=== PATIENT | female | born 1930 | race Caucasian/White ===

== ENCOUNTER 2019-07-03 23:43 | Inpatient (IN) | payer MEDICARE, BC, MEDICAID ==
[~2019-07-03] VITALS: Ht 162.6 cm; Wt 66.7 kg
[2019-07-03] MEDS ORDERED: COREG6.25 MG PEG (23:55)
[2019-07-03] MEDS ORDERED: ASPIRIN81 MG PEG (23:55)
[2019-07-03] MEDS ORDERED: CARDIZEM 90 MG90 MG PEG (23:56)
[2019-07-03] MEDS ORDERED: ELDERTONIC (23:56)
[2019-07-03] MEDS ORDERED: FUROSEMIDE20 MG PEG (23:56)
[2019-07-03] MEDS ORDERED: NYSTATIN1 PWD TOPICAL (23:57)
[2019-07-03] MEDS ORDERED: JUVEN (23:57)
[2019-07-03] MEDS ORDERED: ACETAMINOPHEN325 MG PEG (23:58)
[2019-07-03] MEDS ORDERED: EFFER-K 25 MEQ25 MEQ PEG (23:58)
[2019-07-04] VITALS (7 sets, daily range): BP systolic 100–149; BP diastolic 51–92; BMI 25.3; BMI 25.2
[2019-07-04] MEDS ORDERED: UREA CREAM
[2019-07-04] MEDS ORDERED: EFFEXOR50 MG PEG (00:01)
[2019-07-04 00:04] LABS: BASOPHILS 0.1 % (0-2); EOSINOPHILS 2.1 % (0-7); HEMATOCRIT 33.4 % (36.0-48.0); HEMOGLOBIN 9.9 g/dL (12-16); IMMATURE GRANULOCYTES 0.3 % (0-5); LYMPHOCYTES 7.8 % (15-50); MCH 27.7 pg (26.0-34.0); MCHC 29.6 g/dL (31.0-37.0); MCV 93.3 fL (80.0-100.0); MEAN PLATELET VOLUME 9.8 fL (7.4-10.4); NEUTROPHILS 82.7 % (40-80); RBC 3.58 10x6/uL (4.00-5.40); RDW 17.3 % (11.5-14.5); WBC 12.7 10x3/uL (4.8-10.8)
[2019-07-04 00:09] LABS: PLATELET COUNT 321 10x3/uL (130-400)
[2019-07-04 00:18] LABS: CALC OSMOLALITY 284 mosm/kg (275-300); CALCIUM 9.1 mg/dL (8.5-10.1); CARBON DIOXIDE 36.9 mmol/L (21.0-32.0); CHLORIDE - SERUM 103 mmol/L (98-107); CREATININE - SERUM 0.4 mg/dL (0.6-1.3); GLUCOSE 117 mg/dL (74-106); POTASSIUM - SERUM 5.2 mmol/L (3.5-5.1); SODIUM 141 mmol/L (136-145); UREA NITROGEN 20 mg/dL (7-18); eGFR NON AFRICAN AMERICAN > 90 mL/min (90-120)
[2019-07-04 00:23] LABS: APTT 31.8 SECONDS (22.8-39.4); INR 1.52 (0.85-1.17); PROTIME 17.7 SECONDS (11.6-15.0)
[2019-07-04 00:38] LABS: ALBUMIN 2.2 g/dL (3.4-5.0); ALKALINE PHOSPHATASE 65 U/L (46-116); ALT (SGPT) 28 U/L (10-68); BILIRUBIN - TOTAL 0.38 mg/dL (0.2-1.3); CKMB 1.2 U/L (0.0-3.6); CREATINE KINASE 139 UL (21-215); PRO BNP 4377 pg/mL (0-450)
--- NOTE | 2019-07-04 00:46 | NUR ---
INDWELLING PLUNKETT CATHETER IN PLACE UPON ARRIVAL.
[2019-07-04 01:04] LABS: TROPONIN-I 0.067 ng/mL (0.000-0.060)
[2019-07-04 01:43] LABS: APPEARANCE CLOUDY (CLEAR); BILIRUBIN NEGATIVE (NEGATIVE); COLOR YELLOW (YELLOW); GLUCOSE NEGATIVE (NEGATIVE); KETONE NEGATIVE (NEGATIVE); NITRITE NEGATIVE (NEGATIVE); PROTEIN 1+ mg/dL (NEGATIVE); SPECIFIC GRAVITY 1.015 (1.005-1.020); UROBILINOGEN NORMAL (NORMAL)
[2019-07-04 01:45] LABS: AMORPHOUS SEDIMENT >1+ /lpf (NONE SEEN); BACTERIA FEW /hpf (NEGATIVE); EPITHELIAL CELLS 0-5 /hpf (0-5); MUCUS <1+ /lpf (NONE SEEN)
[2019-07-04 10:25] LABS: BASOPHILS 0.2 % (0-2); EOSINOPHILS 0.6 % (0-7); HEMATOCRIT 29.3 % (36.0-48.0); HEMOGLOBIN 8.6 g/dL (12-16); IMMATURE GRANULOCYTES 0.3 % (0-5); LYMPHOCYTES 6.9 % (15-50); MCH 27.1 pg (26.0-34.0); MCHC 29.4 g/dL (31.0-37.0); MCV 92.4 fL (80.0-100.0); MEAN PLATELET VOLUME 9.7 fL (7.4-10.4); MONOCYTES 6.6 % (2-11); NEUTROPHILS 85.4 % (40-80); PLATELET COUNT 344 10x3/uL (130-400); RBC 3.17 10x6/uL (4.00-5.40); RDW 17.7 % (11.5-14.5); WBC 11.1 10x3/uL (4.8-10.8)
--- NOTE | 2019-07-04 11:24 | NUR ---
Pt was admitted to M2 today from [facility]. 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 Wound has stringy necrotic tissue around edges and has a strong odor. It is also noted that there is a 2cm x 2cm x 0.3cm open wound on the left lateral foot. Periwound is macerated. Pt has contractures of lower extremities, she is bedbound, has f/c and is incontinent. Recommendations: -sacral wound culture -turn/reposition every 2 hours -cushion between knees -dakins wet to dry dressing for sacral wound -alginate dressing for left foot -air overlay mattress Wound care will monitor.
--- NOTE | 2019-07-04 19:35 | NUR ---
RECEIVED BEDSIDE REPORT. PATIENT IS ALERT AND ORIENTED. RESTING COMFORTABLY IN BED. RESPIRATIONS ARE EVEN AND UNLABORED. NO S/S OF DISTRESS. NO C/O PAIN. CALL LIGHT WITHIN REACH. WILL CPOC.
--- NOTE | 2019-07-04 20:00 | NUR ---
PATIENT LAYING ON LEFT SIDE. PATIENT REPOSITIONED TO RIGHT SIDE. NO S/S OF DISTRESS. NO C/O PAIN. CALL LIGHT WITHIN REACH
[2019-07-05] VITALS: BP 130/58
[2019-07-05 04:00] VITALS: BP 117/63
--- NOTE | 2019-07-05 04:32 | NUR ---
PATIENT APPEARS TO BE SLEEPING. RESPIRATIONS ARE EVEN AND UNLABORED. NO S/S OF DISTRESS. CALL LIGHT WITHIN REACH. WILL CPOC
[2019-07-05 05:33] LABS: BASOPHILS 0.1 % (0-2); EOSINOPHILS 1.6 % (0-7); HEMATOCRIT 29.4 % (36.0-48.0); HEMOGLOBIN 8.6 g/dL (12-16); IMMATURE GRANULOCYTES 0.4 % (0-5); LYMPHOCYTES 5.4 % (15-50); MCH 27.4 pg (26.0-34.0); MCHC 29.3 g/dL (31.0-37.0); MCV 93.6 fL (80.0-100.0); MEAN PLATELET VOLUME 10.2 fL (7.4-10.4); NEUTROPHILS 83.5 % (40-80); PLATELET COUNT 316 10x3/uL (130-400); RBC 3.14 10x6/uL (4.00-5.40); RDW 17.7 % (11.5-14.5); WBC 10.4 10x3/uL (4.8-10.8)
[2019-07-05 06:18] LABS: ALBUMIN 1.9 g/dL (3.4-5.0); ALKALINE PHOSPHATASE 59 U/L (46-116); ALT (SGPT) 25 U/L (10-68); BILIRUBIN - TOTAL 0.38 mg/dL (0.2-1.3); CALC OSMOLALITY 289 mosm/kg (275-300); CARBON DIOXIDE 36.3 mmol/L (21.0-32.0); CHLORIDE - SERUM 102 mmol/L (98-107); CKMB 0.7 U/L (0.0-3.6); CREATINE KINASE 90 UL (21-215); CREATININE - SERUM 0.5 mg/dL (0.6-1.3); GLUCOSE 145 mg/dL (74-106); POTASSIUM - SERUM 4.7 mmol/L (3.5-5.1); PRO BNP 2913 pg/mL (0-450); PROTEIN - SERUM 6.7 g/dL (6.4-8.2); SODIUM 141 mmol/L (136-145); THYROID STIMULATING HORMONE 2.68 uIU/mL (0.36-3.74); eGFR NON AFRICAN AMERICAN > 90 mL/min (90-120)
[2019-07-05 06:23] LABS: UREA NITROGEN 28 mg/dL (7-18)
[2019-07-05 08:01] VITALS: BP 142/48
--- NOTE | 2019-07-05 10:30 | NUR ---
SURAJ CHANGED TO COCCYX W-D WITH ASHLEE. DENISHA YARBROUGH.
[2019-07-05 11:56] VITALS: BP 115/52
[2019-07-05 15:43] VITALS: BP 113/45
[2019-07-05 20:00] VITALS: BP 87/66
--- NOTE | 2019-07-05 20:31 | NUR ---
RECEIVED UP IN BED WITH HOB ELEVATED. ALERT AND CONFUSED. ORIENTED TO NAME ONLY. O2@ 4 LITERS PER HIGH FLOW CANNULA. IV TO RIGHT FA SL. GENERALIZED EDEMA TO ALL EXTREMITIES. REMAINS ON OVERLAY. DSG TO COCCYX. BLISTER TO FOOT AND HEEL. NO S/S OF DISTRESS OBSERVED. OSMOLITE AT 55CC/HR PER PEG. TELEMETRY IN PLACE.
[2019-07-06] VITALS: BP 140/70
[2019-07-06 04:00] VITALS: BP 178/75
[2019-07-06 04:52] LABS: BASOPHILS 0.1 % (0-2); EOSINOPHILS 1.4 % (0-7); HEMATOCRIT 30.5 % (36.0-48.0); IMMATURE GRANULOCYTES 0.3 % (0-5); LYMPHOCYTES 7.2 % (15-50); MCH 27.8 pg (26.0-34.0); MCHC 29.5 g/dL (31.0-37.0); MCV 94.1 fL (80.0-100.0); MEAN PLATELET VOLUME 10.4 fL (7.4-10.4); MONOCYTES 8.4 % (2-11); NEUTROPHILS 82.6 % (40-80); PLATELET COUNT 307 10x3/uL (130-400); RBC 3.24 10x6/uL (4.00-5.40); RDW 17.9 % (11.5-14.5); WBC 9.8 10x3/uL (4.8-10.8)
[2019-07-06 05:20] LABS: CALC OSMOLALITY 288 mosm/kg (275-300); CALCIUM 8.7 mg/dL (8.5-10.1); CARBON DIOXIDE 36.5 mmol/L (21.0-32.0); CHLORIDE - SERUM 101 mmol/L (98-107); CREATININE - SERUM 0.5 mg/dL (0.6-1.3); GLUCOSE 152 mg/dL (74-106); POTASSIUM - SERUM 5.2 mmol/L (3.5-5.1); SODIUM 139 mmol/L (136-145); UREA NITROGEN 34 mg/dL (7-18); eGFR NON AFRICAN AMERICAN > 90 mL/min (90-120)
[2019-07-06 07:36] VITALS: BP 124/70
--- NOTE | 2019-07-06 10:39 | NUR ---
DRSG CHANGED TO COCCYX W-D WITH ASHLEE. CULTURE OBTAINED AND SENT TO LAB.
[2019-07-06 11:31] VITALS: BP 116/51
[2019-07-06 15:05] VITALS: BP 132/69
--- NOTE | 2019-07-06 19:37 | NUR ---
RECEIVED UP IN BED WITH HOB ELEVATED. ALERT AND CONFUSES. BABBLES WHEN SHE SPEAKS. O2@ 4 LITERS PER HF N/C. RECEIVING UPDRAFT AT THIS TIME. DSG TO COCCYX AND TO LEFT FOOT X2. TELEMETRY IN PLACE. OSMOLITE AT 55CC/HR PER PEG. REMAINS NPO. UNABLE TO MOVE EXTREMITIES. TURNED AND REPOSITION. NO OBVIOUS S/S OF DISTRESS OBSERVED.
[2019-07-06 20:00] VITALS: BP 138/63
[2019-07-07 00:28] VITALS: BP 129/60
[2019-07-07 04:30] VITALS: BP 136/51
[2019-07-07 05:26] LABS: BASOPHILS 0.1 % (0-2); EOSINOPHILS 1.7 % (0-7); HEMATOCRIT 28.9 % (36.0-48.0); HEMOGLOBIN 8.5 g/dL (12-16); IMMATURE GRANULOCYTES 0.3 % (0-5); LYMPHOCYTES 6.3 % (15-50); MCH 27.3 pg (26.0-34.0); MCHC 29.4 g/dL (31.0-37.0); MCV 92.9 fL (80.0-100.0); MEAN PLATELET VOLUME 10.4 fL (7.4-10.4); NEUTROPHILS 83.6 % (40-80); PLATELET COUNT 305 10x3/uL (130-400); RBC 3.11 10x6/uL (4.00-5.40); RDW 17.7 % (11.5-14.5)
[2019-07-07 05:50] LABS: CALC OSMOLALITY 284 mosm/kg (275-300); CALCIUM 8.8 mg/dL (8.5-10.1); CARBON DIOXIDE 36.6 mmol/L (21.0-32.0); CHLORIDE - SERUM 100 mmol/L (98-107); GLUCOSE 143 mg/dL (74-106); POTASSIUM - SERUM 4.8 mmol/L (3.5-5.1); SODIUM 137 mmol/L (136-145); UREA NITROGEN 37 mg/dL (7-18); eGFR NON AFRICAN AMERICAN 83 mL/min (90-120)
[2019-07-07 05:51] LABS: CREATININE - SERUM 0.7 mg/dL (0.6-1.3)
--- NOTE | 2019-07-07 07:21 | NUR ---
ALERT BUT CONFUSED. TELEMERTY SHOWS CAF 87. WOUND TO COCCYX WITH DRSG DRY AND INTACT. LEFT FOOT WITH DRSG DRY AND INTACT. PEG TUBE WITH OSMOLITE AT 55. 02 AT 4 L/M HF PER NC. PLUNKETT CATH PATENT TO GRAVITY BAG. RIGHT FA SL. PT IS ON A FIRST STEP MATTRESS. WILL MONITOR. SR UP WITH CALL LIGHT IN REACH.
[2019-07-07 10:27] VITALS: BP 123/65
--- NOTE | 2019-07-07 12:10 | NUR ---
REPOSITIONED FOR COMFORT. NO NEEDS NOTED. GOOD ALIGNMENT. WILL MONITOR
[2019-07-07 13:10] VITALS: BP 114/51
--- NOTE | 2019-07-07 14:00 | NUR ---
I have reviewed this patient and I concur with the Shift Assessment completed by the Licensed Practical Nurse today this shift.
--- NOTE | 2019-07-07 15:08 | NUR ---
Nutrition Follow-up: Nurse reports pt tolerating TF at current rate; no BMs this shift. Diet: Osmolite 1.5 @ 55 mL/hr Wili BID No new wt No BMs recorded Labs noted: Glu 143 Meds noted: Lasix -Continue current TF as tolerated. -Rec may consider GI motility agent if no BMs. -RD following.
[2019-07-07 17:00] VITALS: BP 134/67
--- NOTE | 2019-07-07 19:20 | NUR ---
RECIEVED UP IN BED WITH HOB ELEVATED.O2 @ 4 LITERS SPER N/C. ALERT AND CONFUSED. OSMOLITE INFUSING AT 55CC/HR WITH H2O FLUSH OF 40CC/HR. DRESSING TO COCCYX AND LEFT FOOT CDI. REMAINS ON 1ST STEP OVERLAY MATTRESS. TELEMETRY IN PLACE. HAS A LARGE UMBILICAL HERNIA. NO S/S OF DISTRESS OBSERVED.
[2019-07-07 20:00] VITALS: BP 130/70
[2019-07-08] VITALS: BP 144/63
[2019-07-08 04:00] VITALS: BP 119/59
[2019-07-08 05:52] LABS: BASOPHILS 0.2 % (0-2); EOSINOPHILS 1.1 % (0-7); HEMATOCRIT 29.8 % (36.0-48.0); HEMOGLOBIN 8.6 g/dL (12-16); IMMATURE GRANULOCYTES 0.4 % (0-5); LYMPHOCYTES 4.3 % (15-50); MCH 27.3 pg (26.0-34.0); MCHC 28.9 g/dL (31.0-37.0); MCV 94.6 fL (80.0-100.0); MEAN PLATELET VOLUME 10.7 fL (7.4-10.4); MONOCYTES 11.5 % (2-11); NEUTROPHILS 82.5 % (40-80); PLATELET COUNT 306 10x3/uL (130-400); RBC 3.15 10x6/uL (4.00-5.40); RDW 17.7 % (11.5-14.5); WBC 11.3 10x3/uL (4.8-10.8)
[2019-07-08 06:08] LABS: CALC OSMOLALITY 284 mosm/kg (275-300); CALCIUM 8.5 mg/dL (8.5-10.1); CARBON DIOXIDE 37.7 mmol/L (21.0-32.0); CHLORIDE - SERUM 101 mmol/L (98-107); CREATININE - SERUM 0.7 mg/dL (0.6-1.3); GLUCOSE 144 mg/dL (74-106); POTASSIUM - SERUM 4.5 mmol/L (3.5-5.1); SODIUM 137 mmol/L (136-145); UREA NITROGEN 35 mg/dL (7-18); eGFR NON AFRICAN AMERICAN 83 mL/min (90-120)
--- NOTE | 2019-07-08 07:32 | NUR ---
ALERT BUT CONFUSED. TELEMERTY SHOWS CAF 94. O2 AT 4 L/M PER NC HIGH FLOW. PLUNKETT CATH TO BEDSIDE DRAINAGE. RIGHT FA IV SL. DRSG TO COCCYX AND LEFT FOOT.PT IS A DNR.
[2019-07-08 11:47] VITALS: BP 118/33
[2019-07-08 12:00] VITALS: BP 92/71
--- NOTE | 2019-07-08 16:00 | NUR ---
I have reviewed this patient and I concur with the Shift Assessment completed by the Licensed Practical Nurse today this shift.
--- NOTE | 2019-07-08 17:53 | NUR ---
LYING QUIETLY. REPOSITIONED FOR COMFORT. TELEMERTY SHOWS CAF. SR UP WITH CALL LIGHT IN REACH
[2019-07-08 18:32] VITALS: BP 125/43
--- NOTE | 2019-07-08 19:14 | NUR ---
RECEIVED BEDSIDE REPORT. PATIENT IS RESTING COMFORTABLY IN BED. RESPIRATIONS ARE EVEN AND UNLABORED. NO S/S OF DISTRESS. NO C/O PAIN. CALL LIGHT WITHIN REACH. WILL CPOC.
[2019-07-08 20:00] VITALS: BP 110/51
[2019-07-09 00:27] VITALS: BP 110/52
--- NOTE | 2019-07-09 03:50 | NUR ---
PATIENT RESTING COMFORTABLY IN BED. RESPIRATIONS ARE EVEN AND UNLABORED. NO S/S OF DISTRESS. NO C/O PAIN. CALL LIGHT WITHIN REACH. WILL CPOC.
[2019-07-09 04:30] VITALS: BP 136/65
[2019-07-09 05:33] LABS: BASOPHILS 0.2 % (0-2); EOSINOPHILS 2.2 % (0-7); HEMATOCRIT 28.5 % (36.0-48.0); HEMOGLOBIN 8.2 g/dL (12-16); IMMATURE GRANULOCYTES 0.3 % (0-5); LYMPHOCYTES 6.2 % (15-50); MCH 27.3 pg (26.0-34.0); MCHC 28.8 g/dL (31.0-37.0); MEAN PLATELET VOLUME 10.4 fL (7.4-10.4); MONOCYTES 9.5 % (2-11); NEUTROPHILS 81.6 % (40-80); PLATELET COUNT 289 10x3/uL (130-400); RDW 17.6 % (11.5-14.5); WBC 9.6 10x3/uL (4.8-10.8)
[2019-07-09 05:52] LABS: CALC OSMOLALITY 287 mosm/kg (275-300); CALCIUM 8.5 mg/dL (8.5-10.1); CARBON DIOXIDE 39.5 mmol/L (21.0-32.0); CHLORIDE - SERUM 102 mmol/L (98-107); CREATININE - SERUM 0.7 mg/dL (0.6-1.3); GLUCOSE 139 mg/dL (74-106); POTASSIUM - SERUM 4.8 mmol/L (3.5-5.1); SODIUM 139 mmol/L (136-145); UREA NITROGEN 36 mg/dL (7-18); eGFR NON AFRICAN AMERICAN 83 mL/min (90-120)
[2019-07-09 08:03] VITALS: Ht 162.6 cm; Wt 66.7 kg
[2019-07-09 09:36] VITALS: BP 159/80
--- NOTE | 2019-07-09 09:51 | NUR ---
IV RESTARTED TO RIGHT WRIST WITH 22 GAUGE CATH X 1 STICK AND FLUSHED WITH NS. LINE IS PATENT.
[2019-07-09 11:51] VITALS: BP 111/39
--- NOTE | 2019-07-09 12:14 | NUR ---
Nutrition Follow-up: Nurse reports pt tolerating TF at goal rate. Diet: Osmolite 1.5 @ 55 mL/hr Wili BID No new wt Last BM: 07/08 per chart Labs noted: Glu 139 Meds noted: Pepcid, Lasix -Continue TF/Wili as tolerated. -RD following.
--- NOTE | 2019-07-09 12:22 | NUR ---
TELEMETRY CAF. DRSG CHANGED TO COCCYX PER ORDERS. KATINA MARTELL. WILL CONT. PLAN OF CARE.
--- NOTE | 2019-07-09 14:26 | MORECARE ---
CASE MANAGEMENT DISCHARGE SUMMARY PATIENT: WILLIAN CASTELLANOS UNIT: [id number] ADM DATE: 07/04/19 AGE: 88 : [birth year] SEX: F ROOM/BED: D.2117 AUTHOR: JENNY WESTON PHYSICIAN: REFERRING PHYSICIAN: CHRISTIANO STARK MD DATE OF SERVICE: 07/09/19 Discharge Plan Patient Name: WILLIAN CASTELLANOS [facility] [facility] 1930 Planned Disposition: Nursing Facility JOSE Cert Anticipated Discharge Date: Discharge Date: Expected LOS: Initial Reviewer: [email or web address] Initial Review Date: 07/09/2019 Generated: 07/09/19 3:26 pm Coverage Notice Reviewer: [id number] Justina Morales Notice Issued Date-Time: 07/09/2019 14:10 Notice Type: IM Discharge Notice Notice Delivered To: Family Member Relationship to Patient: Son Boiler Coverer Name: JEANETTE CASTELLANOS Delivery Method: HAND - Hand Delivered Patience Days: Prior Verbal Notification: Recipient Understood Notice: Yes Recipient Signature: Yes Med Rec Note Co-signed by Attending: Coverage Notice Comment: Reviewer: [id number] Morales Notice Issued Date-Time: 07/09/2019 14:10 Notice Type: Patient Choice Letter Notice Delivered To: Family Member Relationship to Patient: Son Boiler Coverer Name: JEANETTE CASTELLANOS Delivery Method: HAND - Hand Delivered Patience Days: Prior Verbal Notification: Recipient Understood Notice: Yes Recipient Signature: Yes Med Rec Note Co-signed by Attending: Coverage Notice Comment: JOHN SIMMS Patient Name: WILLIAN CASTELLANOS Page [phone] at 1426 All edits/amendments must be made on the electronic document DICTATION DATE: 07/09/19 142 PRICING ANALYST: ANGI 07/09/19 1426 RPT#: [id number] OR DATE: STATUS: ADM IN [facility] [address] [place] [address] END OF REPORT
--- NOTE | 2019-07-09 14:57 | MORECARE ---
CASE MANAGEMENT DISCHARGE SUMMARY PATIENT: WILLIAN CASTELLANOS UNIT: [id number] ADM DATE: 07/04/19 AGE: 88 : [birth year] SEX: F ROOM/BED: D.4645 AUTHOR: JENNY WESTON PHYSICIAN: REFERRING PHYSICIAN: CHRISTIANO STARK MD DATE OF SERVICE: 07/09/19 Discharge Plan Patient Name: WILLIAN CASTELLANOS Facility: [facility]:[place] : 1930 Planned Disposition: Nursing Facility JOSE Cert Anticipated Discharge Date: Discharge Date: Expected LOS: Initial Reviewer: [email or web address] Initial Review Date: 07/09/2019 Generated: 07/09/19 3:57 pm DCPIA - Discharge Planning Initial Assessment Updated by [email or web address]: Oumar Morales on 07/09/19 2:50 pm * Is the patient Alert and Oriented? No * How many steps to enter\exit or inside your home? NONE * PCP DR. STARK * Pharmacy [facility] [place] * Preadmission Environment [facility] * Facility Name [facility] * ADLs Total Dependent * Equipment Other * Other Equipment ALL MEDICAL EQUIPMENT PROVIDED BY FACILITY * List name and contact numbers for known caregivers / representatives who currently or will assist patient after discharge: MICH [place], * Verbal permission to speak to the caregivers and representatives has been obtained from the patient. N/A * Community resources currently utilized None * Please name any agencies selected above. NONE * Additional services required to return to the preadmission environment? Yes * Can the patient safely return to the preadmission environment? Yes * Has this patient been hospitalized within the prior 30 days at any hospital? No Coverage Notice Reviewer: [id number] Justina Morales Notice Issued Date-Time: 07/09/2019 14:10 Notice Type: IM Discharge Notice Notice Delivered To: Family Member Relationship to Patient: Son All Around Gear Machine Operator Name: JEANETTE CASTELLANOS Delivery Method: HAND - Hand Delivered Patience Days: Prior Verbal Notification: Recipient Understood Notice: Yes Recipient Signature: Yes Med Rec Note Co-signed by Attending: Coverage Notice Comment: Reviewer: [id number] Morales Notice Issued Date-Time: 07/09/2019 14:10 Notice Type: Patient Choice Letter Notice Delivered To: Family Member Relationship to Patient: Son All Around Gear Machine Operator Name: JEANETTE CASTELLANOS Delivery Method: HAND - Hand Delivered Patience Days: Prior Verbal Notification: Recipient Understood Notice: Yes Recipient Signature: Yes Med Rec Note Co-signed by Attending: Coverage Notice Comment: JOHN Lockwood DP export: 07/09/19 1:26 Patient Name: WILLIAN CASTELLANOS Page [phone] at 1457 All edits/amendments must be made on the electronic document DICTATION DATE: 07/09/191456 CUSHION MAT MAKER: ANGI 07/09/191456 RPT#: [id number] DC DATE: STATUS: ADM IN [facility] [address] [place] [address] END OF REPORT
--- NOTE | 2019-07-09 15:05 | MORECARE ---
CASE MANAGEMENT DISCHARGE SUMMARY PATIENT: WILLIAN CASTELLANOS UNIT: [id number] ADM DATE: 07/04/19 AGE: 88 : [birth year] SEX: F ROOM/BED: D.9538 AUTHOR: JENNY WESTON PHYSICIAN: REFERRING PHYSICIAN: CHRISTIANO STARK MD DATE OF SERVICE: 07/09/19 Discharge Plan Patient Name: WILLIAN CASTELLANOS [facility] [facility] 1930 Planned Disposition: Nursing Facility JOSE Cert Anticipated Discharge Date: Discharge Date: Expected LOS: Initial Reviewer: [id number] Initial Review Date: 07/09/2019 Generated: 07/09/19 4:05 pm Comments DCP- Discharge Planning Updated by [email or web address]: Oumar Morales on 07/09/19 2:[address] Patient Name: WILLIAN CASTELLANOS Admission Status: ER Accout number: [id number] Admission Date: 07-04-2019 : 1930 Admission Diagnosis: Attending: CHRISTIANO STARK Current LOS: 5 Anticipated DC Date: Planned Disposition: Nursing Facility JOSE Cert Primary Insurance: [facility] PLANNED EXTERNAL PROVIDER: [facility], LONG TERM CARE MEDICAID BED Discharge Planning Comments: CM RECEIVED HOSPICE CONSULT ORDER. CM ATTEMPTED TO MEET WITH PT IN ROOM, PT CONFUSED, SUCKING ON FINGER. CM CALLED LISTED EMERGENCY CONTACT, EJANETTE EMANUEL, . JEANETTE INFORMED CM THAT PT IS PLACED AT [facility]. CM DISCUSSED HOSPICE ORDER AND DISCHARGE PLANNING PROCESS. CM PROVIDED NAMES OF HOSPICE PROVIDERS, DISCUSSED LOCATIONS HOSPICE CAN BE PROVIDED AND HOSPICE SERVICES. JEANETTE REPORTS HE HAS TALKED TO HE BEDSIDE NURSE REGARDING CHEST XRAYS AND HE IS PERSONAL FRIENDS WITH DR. STARK AND DR. SWAIN. JEANETTE WOULD LIKE TO SPEAK TO DR. BETANCOURT REGARDING PNEUMONIA DIAGNOSIS PRIOR TO MAKING FURTHER DECISIONS REGARDING HOSPICE. CM PROVIDED CM CONTACT INFORMATION AND PHONE NUMBER TO [employer] IMPROVEMENT OFFICE FOR MEDICARE, DISCUSSED IMPORTANT MESSAGE FROM MEDICARE. CM COMPLETED CHOICE LIST FOR [facility] AND MAILED COPY OF IMPORTANT MESSAGE FROM MEDICARE TO JEANETTE CASTELLANOS AT [address] [place] [phone]. CM CALLED MARINO MACDONALD, LEFT MESSAGE ASKING FOR HIM TO CALL PT'S SON TO DISCUSS CARE AND TREATMENT TO ASSIST IN FAMILY MAKING HOSPICE DECISION. CM CALLED DR. BETANCOURT, ASKED THAT HE CALL PT'S SON REGARDING PNEUMONIA DIAGNOSIS, CARE AND TREATMENT TO ASSIST IN FAMILY MAKING HOSPICE DECISION. CM WAITING FOR MARINO RAVI AND DR. BETANCOURT TO SPEAK TO PT'S SON, JEANETTE CASTELLANOS AT [phone]. JEANETTE WILL MAKE FURTHER CARE DECISIONS AFTER SPEAKING TO THE DOCTORS. [employer] Installer: Oumar Carmen DCPIA - Discharge Planning Initial Assessment Updated by [email or web address]: Oumar Morales on 07/09/19 2:50 pm * Is the patient Alert and Oriented? No * How many steps to enter\exit or inside your home? NONE * PCP DR. STARK * Pharmacy [facility] [place] * Preadmission Environment [facility] * Facility Name [facility] * ADLs Total Dependent * Equipment Other * Other Equipment ALL MEDICAL EQUIPMENT PROVIDED BY FACILITY * List name and contact numbers for known caregivers / representatives who currently or will assist patient after discharge: JEANETTE CASTELLANOS, MICH, * Verbal permission to speak to the caregivers and representatives has been obtained from the patient. N/A * Community resources currently utilized None * Please name any agencies selected above. NONE * Additional services required to return to the preadmission environment? Yes * Can the patient safely return to the preadmission environment? Yes * Has this patient been hospitalized within the prior 30 days at any hospital? No Coverage Notice Reviewer: [id number] Morales Notice Issued Date-Time: 07/09/2019 14:10 Notice Type: IM Discharge Notice Notice Delivered To: Family Member Relationship to Patient: Son Doctor Chiropractic Name: JEANETTE CASTELLANOS Delivery Method: CERT - Certified Mail Patience Days: Prior Verbal Notification: Recipient Understood Notice: Yes Recipient Signature: Med Rec Note Co-signed by Attending: Coverage Notice Comment: DISCUSSED VIA PHONE Reviewer: [id number] Morales Notice Issued Date-Time: 07/09/2019 14:10 Notice Type: Patient Choice Letter Notice Delivered To: Family Member Relationship to Patient: Son Doctor Chiropractic Name: JEANETTE CASTELLANOS Delivery Method: HAND - Hand Delivered Patience Days: Prior Verbal Notification: Recipient Understood Notice: Yes Recipient Signature: Yes Med Rec Note Co-signed by Attending: Coverage Notice Comment: JOHN LLOYDConi Lockwood DP export: 07/09/19 1:57 Patient Name: WILLIAN CASTELLANOS Page [phone] at 1505 All edits/amendments must be made on the electronic document DICTATION DATE: 07/09/19 150 BALANCE WHEEL MOTION INSPECTOR: ANGI 07/09/19 150 RPT#: [id number] DC DATE: STATUS: ADM IN [facility] [address] [place] [address] END OF REPORT
[2019-07-09 16:10] VITALS: BP 117/69
--- NOTE | 2019-07-09 19:22 | NUR ---
RECEIVED BEDSIDE REPORT. PATIENT IS ALERT AND PLEASANTLY CONFUSED, RESTING COMFORTABLY IN BED. PATIENT IS CURRENTLY RECEIVING HER SCHEDULED BREATHING TREATMENTS. NO S/S OF DISTRESS. NO C/O PAIN. CALL LIGHT WITHIN REACH. NEEDS MET. WILL CPOC.
[2019-07-09 20:00] VITALS: BP 164/53
--- NOTE | 2019-07-09 22:02 | NUR ---
PATIENT GIVEN BATH AND LINENS CHANGED. PATIENT ALSO REPOSITIONED AT THIS TIME
[2019-07-10] VITALS: BP 145/49
--- NOTE | 2019-07-10 02:30 | NUR ---
PATIENT REPOSTIONED ONTO RIGHT SIDE.
[2019-07-10 05:49] LABS: BASOPHILS 0.3 % (0-2); EOSINOPHILS 0.5 % (0-7); HEMATOCRIT 28.9 % (36.0-48.0); HEMOGLOBIN 8.3 g/dL (12-16); IMMATURE GRANULOCYTES 0.3 % (0-5); LYMPHOCYTES 6.5 % (15-50); MCH 26.9 pg (26.0-34.0); MCHC 28.7 g/dL (31.0-37.0); MCV 93.8 fL (80.0-100.0); MEAN PLATELET VOLUME 11.1 fL (7.4-10.4); MONOCYTES 8.7 % (2-11); NEUTROPHILS 83.7 % (40-80); PLATELET COUNT 339 10x3/uL (130-400); RBC 3.08 10x6/uL (4.00-5.40); RDW 17.5 % (11.5-14.5); WBC 11.7 10x3/uL (4.8-10.8)
[2019-07-10 07:29] LABS: ANION GAP 3.5 mmol/L (8-16); CALCIUM 8.7 mg/dL (8.5-10.1); CARBON DIOXIDE 38.7 mmol/L (21.0-32.0); CREATININE - SERUM 0.8 mg/dL (0.6-1.3); MAGNESIUM - SERUM 2.6 mg/dL (1.8-2.4); PHOSPHOROUS 2.5 mg/dL (2.5-4.9); POTASSIUM - SERUM 5.2 mmol/L (3.5-5.1); VANCOMYCIN - TROUGH 12.1 ug/mL (10.0-20.0)
[2019-07-10 08:19] VITALS: BP 147/66
--- NOTE | 2019-07-10 10:40 | EC ---
PATIENT:WILLIAN CASTELLANOS DATE OF SERVICE: 07/04/19 SEX: F MEDICAL RECORD: [id number] DATE OF : [birth year] LOCATION:D.M2 D.211 AGE OF PATIENT: 88 ADMISSION DATE: 07/04/19 REFERRING PHYSICIAN: INTERPRETING PHYSICIAN: YADIEL HUMPHREY MD ECHOCARDIOGRAM REPORT ECHO CHARGES 4 ECHO COMPLETE Date: 07/04/19 CLINICAL DIAGNOSIS: DYSPNEA/A-FIB WITH RVR ECHOCARDIOGRAPHIC MEASUREMENTS (adult normal given) AC root (d.<3.7cm) 3.3 cm LV Septum d (<1.2 cm> 1.4 cm Valve Excursion 0.7 cm LV Septum (systole) 2.1 cm Left Atria (s.<4.0cm> 6.0 cm LVPW d(<1.2cm) 1.3 cm RV (d.<2.3cm) 2.8 cm LVPW (sytole) 2.0 cm LV diastole(<5.6CM) 4.8 cm MV E-F(>70mm/sec) cm LV systole 2.3 cm LVOT Diameter 1.7 cm MV exc.(>10mm) cm Est.ejection fraction (50-75%) % DOPPLER: LVIT cm/sec A cm/sec E 165 cm/sec LA cm/sec RVSP 79.3 mmHg LVOT 136 cm/sec AOP1/2T 352.0m/s Asc. Ao 421 cm/sec RVOT 48.0 cm/sec RA cm/sec PA 69.0 cm/sec AV Gradient Peak 71.0 mmHg AV Mean 36.3 mmHg AV Area 0.9 cm MV Gradient Peak 15.0 mmHg MV Mean 5.6 mmHg MV Area cm COMMENTS: Paper Rewinder Operator: Corry AMADOROE Treasury Agent: 1 Dr. Humphrey TAPE# PACS Pericardial Effusion N DATE OF SERVICE: 07/04/2019 ECHOCARDIOGRAM FINDINGS: 1. Left ventricular chamber size is within normal limits. Left ventricular systolic function is normal at 60%. 2. Left atrium is enlarged at 6.0 cm. Right atrium and right ventricular chamber sizes are as well, moderate to severely dilated. 3. Valvular structures: Aortic valve demonstrates severe aortic stenosis, ECHOCARDIOGRAM REPORT [id number] WILLIAN CASTELLANOS valve area calculates to 0.9 cm-squared, but there is a gradient of 71 mm across the valve. The remaining valvular structures have normal structure and motion. 4. Doppler interrogation elsewise reveals moderate aortic insufficiency, moderate mitral regurgitation, moderate tricuspid regurgitation, no other valvular insufficiency or stenosis. Pulmonary systolic pressure is markedly elevated at 80 mmHg. 5. No evidence of pericardial effusion or left ventricular thrombus. TRANSINT:[id number] Voice Confirmation ID: [id number] DOCUMENT ID: [id number] YADIEL HUMPHREY MD at 1040 CC: [id number] DICTATION DATE: 07/04/19 1434 [place] NET: 07/04/19 1851 ADM IN [facility] [address] [place] [id number]
[2019-07-10 12:30] VITALS: BP 112/38
--- NOTE | 2019-07-10 14:10 | MORECARE ---
CASE MANAGEMENT DISCHARGE SUMMARY PATIENT: WILLIAN CASTELLANOS UNIT: [id number] ADM DATE: 07/04/19 AGE: 88 : [birth year] SEX: F ROOM/BED: D.6931 AUTHOR: JENNY WESTON PHYSICIAN: REFERRING PHYSICIAN: CHRISTIANO STARK MD DATE OF SERVICE: 07/10/19 Discharge Plan Patient Name: WILLIAN CASTELLANOS [facility] [facility] 1930 Planned Disposition: Nursing Facility JOSE Cert Anticipated Discharge Date: Discharge Date: Expected LOS: Initial Reviewer: [email or web address] Initial Review Date: 07/09/2019 Generated: 07/10/19 3:10 pm Comments DCP- Discharge Planning Updated by [email or web address]: Oumar Morales on 07/09/19 2:[address] Patient Name: WILLIAN CASTELLANOS Admission Status: ER Accout number: [id number] Admission Date: 07-04-2019 : 1930 Admission Diagnosis: Attending: CHRISTIANO STARK Current LOS: 5 Anticipated DC Date: Planned Disposition: Nursing Facility JOSE Cert Primary Insurance: [facility] PLANNED EXTERNAL PROVIDER: [facility], LONG TERM CARE MEDICAID BED Discharge Planning Comments: CM RECEIVED HOSPICE CONSULT ORDER. CM ATTEMPTED TO MEET WITH PT IN ROOM, PT CONFUSED, SUCKING ON FINGER. CM CALLED LISTED EMERGENCY CONTACT, JEANETTE EMANUEL, . JEANETTE INFORMED CM THAT PT IS PLACED AT [facility]. CM DISCUSSED HOSPICE ORDER AND DISCHARGE PLANNING PROCESS. CM PROVIDED NAMES OF HOSPICE PROVIDERS, DISCUSSED LOCATIONS HOSPICE CAN BE PROVIDED AND HOSPICE SERVICES. JEANETTE REPORTS HE HAS TALKED TO HE BEDSIDE NURSE REGARDING CHEST XRAYS AND HE IS PERSONAL FRIENDS WITH DR. STARK AND DR. SWAIN. JEANETTE WOULD LIKE TO SPEAK TO DR. BETANCOURT REGARDING PNEUMONIA DIAGNOSIS PRIOR TO MAKING FURTHER DECISIONS REGARDING HOSPICE. CM PROVIDED CM CONTACT INFORMATION AND PHONE NUMBER TO [employer] IMPROVEMENT OFFICE FOR MEDICARE, DISCUSSED IMPORTANT MESSAGE FROM MEDICARE. CM COMPLETED CHOICE LIST FOR [facility] AND MAILED COPY OF IMPORTANT MESSAGE FROM MEDICARE TO JEANETTE CASTELLANOS AT [address] [place] [phone]. CM CALLED MARINO MACDONALD, LEFT MESSAGE ASKING FOR HIM TO CALL PT'S SON TO DISCUSS CARE AND TREATMENT TO ASSIST IN FAMILY MAKING HOSPICE DECISION. CM CALLED DR. BETANCOURT, ASKED THAT HE CALL PT'S SON REGARDING PNEUMONIA DIAGNOSIS, CARE AND TREATMENT TO ASSIST IN FAMILY MAKING HOSPICE DECISION. CM WAITING FOR MARINO RAVI AND DR. BETANCOURT TO SPEAK TO PT'S SON, JEANETTE CASTELLANOS AT [phone]. JEANETTE WILL MAKE FURTHER CARE DECISIONS AFTER SPEAKING TO THE DOCTORS. Supervisor Loading: Oumar Morales DCPIA - Discharge Planning Initial Assessment Updated by [email or web address]: Oumar Morales on 07/09/19 2:50 pm * Is the patient Alert and Oriented? No * How many steps to enter\exit or inside your home? NONE * PCP DR. STARK * Pharmacy [facility] [place] * Preadmission Environment C[facility]ial [facility] * Facility Name [facility] * ADLs Total Dependent * Equipment Other * Other Equipment ALL MEDICAL EQUIPMENT PROVIDED BY FACILITY * List name and contact numbers for known caregivers / representatives who currently or will assist patient after discharge: JEANETTE CASTELLANOS, SON, * Verbal permission to speak to the caregivers and representatives has been obtained from the patient. N/A * Community resources currently utilized None * Please name any agencies selected above. NONE * Additional services required to return to the preadmission environment? Yes * Can the patient safely return to the preadmission environment? Yes * Has this patient been hospitalized within the prior 30 days at any hospital? No External Providers External Provider: [facility] *(provides inpt [facility] Next Contact Date: 07/10/2019 Service Request Date: Service Type: Resolution: Reviewer: Comments: Coverage Notice Reviewer: [email or web address] Justina Morales Notice Issued Date-Time: 07/09/2019 14:10 Notice Type: IM Discharge Notice Notice Delivered To: Family Member Relationship to Patient: Son Dsp Engineer Name: JEANETTE CASTELLANOS Delivery Method: CERT - Certified Mail Patience Days: Prior Verbal Notification: Recipient Understood Notice: Yes Recipient Signature: Med Rec Note Co-signed by Attending: Coverage Notice Comment: DISCUSSED VIA PHONE Reviewer: [id number] Morales Notice Issued Date-Time: 07/09/2019 14:10 Notice Type: Patient Choice Letter Notice Delivered To: Family Member Relationship to Patient: Son Dsp Engineer Name: JEANETTE CASTELLANOS Delivery Method: HAND - Hand Delivered Patience Days: Prior Verbal Notification: Recipient Understood Notice: Yes Recipient Signature: Yes Med Rec Note Co-signed by Attending: Coverage Notice Comment: JOHN Lockwood DP export: 07/09/19 2:05 Patient Name: WILLIAN CASTELLANOS Page [phone] at 1410 All edits/amendments must be made on the electronic document DICTATION DATE: 07/10/191409 TEMPORARY ADMINISTRATIVE ASSISTANT: ANGI 07/10/191409 RPT#: [id number] DC DATE: STATUS: ADM IN [facility] [address] [place] [address] END OF REPORT
--- NOTE | 2019-07-10 14:34 | MORECARE ---
CASE MANAGEMENT DISCHARGE SUMMARY PATIENT: WILLIAN CASTELLANOS UNIT: [id number] ADM DATE: 07/04/19 AGE: 88 : [birth year] SEX: F ROOM/BED: D.0102 AUTHOR: JENNY WESTON PHYSICIAN: REFERRING PHYSICIAN: CHRISTIANO STARK MD DATE OF SERVICE: 07/10/19 Discharge Plan Patient Name: WILLIAN CASTELLANOS Facility: [facility]:[place] : 1930 Planned Disposition: Nursing Facility [facility] Cert Anticipated Discharge Date: Discharge Date: Expected LOS: Initial Reviewer: [id number] Initial Review Date: 07/09/2019 Generated: 07/10/19 3:33 pm Comments DCP- Discharge Planning Updated by [id number]: Oumar Morales on 07/10/19 1:[address] Patient Name: WILLIAN CASTELLANOS Encounter No: [id number] : 1930 Primary Insurance: [employer] Anticipated DC Date: Planned Disposition: Nursing Facility [facility] Cert External Planned Provider: [place], LONG TERM CARE MEDICAID BED DCP follow-up note: CM RECEIVED CALL FROM JEANETTE CASTELLANOS, SON, WHO INFORMED CM THAT HE HAS TALKED TO DR. BETANCOURT AND MARINO MACDONALD. JEANETTE WOULD LIKE REFERRAL FOR HOSPICE FAXED TO [facility] BUT HAS NOT MADE A DEFINITE HOSPICE DECISION YET. JEANETTE WOULD LIKE TO DISCUSS HOSPICE CARE AND OPTIONS WITH [facility] BEFORE MAKING FURHTER DECISIONS. CHOICE COMPLETED FOR [facility]. CM CALLED [facility], ,. SPOKE TO MARGE AND PROVIDED REFERRAL FOR HOSPICE CONSULT. CM FAXED REFERRAL TO [facility] AT [phone]. CM WAITING ON HOSPICE CONSULT AND FOR PT'S SON'S DECISION REGARDING HOSPICE CARE. PT'S SON REPORTS THAT IF PT IS NOT APPROPRIATE FOR INPATIENT HOSPICE OR IF HE DECIDES AGAINST HOSPICE, HE PLANS TO RETURN PT TO [facility] CARE AT [facility]. CM TO CONTINUE TO FOLLOW AND ASSIST NEEDED. Oumar Morales CASE LAI DCP- Discharge Planning Updated by [email or web address]: Oumar Morales on 07/09/19 2:[address] Patient Name: WILLIAN CASTELLANOS Admission Status: ER Accout number: [id number] Admission Date: 07-04-2019 : 1930 Admission Diagnosis: Attending: CHRISTIANO STARK Current LOS: 5 Anticipated DC Date: Planned Disposition: Nursing Facility [facility] Primary Insurance: [facility] PLANNED EXTERNAL PROVIDER: [facility], [facility] MEDICAID BED Discharge Planning Comments: CM RECEIVED HOSPICE CONSULT ORDER. CM ATTEMPTED TO MEET WITH PT IN ROOM, PT CONFUSED, SUCKING ON FINGER. CM CALLED LISTED EMERGENCY CONTACT, JEANETTE CASTELLANOS, . JEANETTE INFORMED CM THAT PT IS PLACED AT [facility]. CM DISCUSSED HOSPICE ORDER AND DISCHARGE PLANNING PROCESS. CM PROVIDED NAMES OF HOSPICE PROVIDERS, DISCUSSED LOCATIONS HOSPICE CAN BE PROVIDED AND HOSPICE SERVICES. JEANETTE REPORTS HE HAS TALKED TO HE BEDSIDE NURSE REGARDING CHEST XRAYS AND HE IS PERSONAL FRIENDS WITH DR. STARK AND DR. SWAIN. JEANETTE WOULD LIKE TO SPEAK TO DR. BETANCOURT REGARDING PNEUMONIA DIAGNOSIS PRIOR TO MAKING FURTHER DECISIONS REGARDING HOSPICE. CM PROVIDED CM CONTACT INFORMATION AND PHONE NUMBER TO QUALITY IMPROVEMENT OFFICE FOR MEDICARE, DISCUSSED IMPORTANT MESSAGE FROM MEDICARE. CM COMPLETED CHOICE LIST FOR [facility] AND MAILED COPY OF IMPORTANT MESSAGE FROM MEDICARE TO JEANETTE CASTELLANOS AT [address] [place] [phone]. CM CALLED MARINO MACDONALD, LEFT MESSAGE ASKING FOR HIM TO CALL PT'S SON TO DISCUSS CARE AND TREATMENT TO ASSIST IN FAMILY MAKING HOSPICE DECISION. CM CALLED DR. BETANCOURT, ASKED THAT HE CALL PT'S SON REGARDING PNEUMONIA DIAGNOSIS, CARE AND TREATMENT TO ASSIST IN FAMILY MAKING HOSPICE DECISION. CM WAITING FOR MARINO RAVI AND DR. BETANCOURT TO SPEAK TO PT'S SON, JEANETTE CASTELLANOS AT [phone]. JEANETTE WILL MAKE FURTHER CARE DECISIONS AFTER SPEAKING TO THE DOCTORS. Branch Coordinator: Oumar Morales DCPIA - Discharge Planning Initial Assessment Updated by [id number]: Oumar Morales on 07/09/19 2:50 pm * Is the patient Alert and Oriented? No * How many steps to enter\exit or inside your home? NONE * PCP DR. STARK * Pharmacy [facility] [place] * Preadmission Environment [employer] * Facility Name [facility] * ADLs Total Dependent * Equipment Other * Other Equipment ALL MEDICAL EQUIPMENT PROVIDED BY FACILITY * List name and contact numbers for known caregivers / representatives who currently or will assist patient after discharge: JEANETTE CASTELLANOS, SON, * Verbal permission to speak to the caregivers and representatives has been obtained from the patient. N/A * Community resources currently utilized None * Please name any agencies selected above. NONE * Additional services required to return to the preadmission environment? Yes * Can the patient safely return to the preadmission environment? Yes * Has this patient been hospitalized within the prior 30 days at any hospital? No Coverage Notice Reviewer: [id number] Morales Notice Issued Date-Time: 07/09/2019 14:10 Notice Type: IM Discharge Notice Notice Delivered To: Family Member Relationship to Patient: Son Direct Sales Professional Name: JEANETTE CASTELLANOS Delivery Method: CERT - Certified Mail Patience Days: Prior Verbal Notification: Recipient Understood Notice: Yes Recipient Signature: Med Rec Note Co-signed by Attending: Coverage Notice Comment: DISCUSSED VIA PHONE Reviewer: AUBREE Morales Notice Issued Date-Time: 07/09/2019 14:10 Notice Type: Patient Choice Letter Notice Delivered To: Family Member Relationship to Patient: Son Direct Sales Professional Name: JEANETTE CASTELLANOS Delivery Method: HAND - Hand Delivered Patience Days: Prior Verbal Notification: Recipient Understood Notice: Yes Recipient Signature: Yes Med Rec Note Co-signed by Attending: Coverage Notice Comment: JOHN SIMMS Reviewer: [id number] Morales Notice Issued Date-Time: 07/10/2019 11:45 Notice Type: Patient Choice Letter Notice Delivered To: Family Member Relationship to Patient: Son Direct Sales Professional Name: JEANETTE CASTELLANOS Delivery Method: HAND - Hand Delivered Patience Days: Prior Verbal Notification: Recipient Understood Notice: Yes Recipient Signature: Yes Med Rec Note Co-signed by Attending: Coverage Notice Comment: [facility] Last DP export: 07/10/19 1:10 Patient Name: WILLIAN CASTELLANOS Page [phone] at 1434 All edits/amendments must be made on the electronic document DICTATION DATE: 07/10/191432 CAR DRIVER: ANGI 07/10/191432 RPT#: [id number] DC DATE: STATUS: ADM IN [facility] [address] [place] [address] END OF REPORT
--- NOTE | 2019-07-10 14:44 | NUR ---
DRSG CHANGED TO [facility] PER ORDERS. BM NOTED.
[2019-07-10 15:31] VITALS: BP 105/42
--- NOTE | 2019-07-10 16:29 | MORECARE ---
CASE MANAGEMENT DISCHARGE SUMMARY PATIENT: WILLIAN CASTELLANOS UNIT: [id number] ADM DATE: 07/04/19 AGE: 88 : [birth year] SEX: F ROOM/BED: D.0710 AUTHOR: JENNY WESTON PHYSICIAN: REFERRING PHYSICIAN: CHRISTIANO STARK MD DATE OF SERVICE: 07/10/19 Discharge Plan Patient Name: WILLIAN CASTELLANOS Facility: [facility]:[place] : 1930 Planned Disposition: Hospice Medical Facility Anticipated Discharge Date: 07/10/19 Discharge Date: Expected LOS: 6 Initial Reviewer: [id number] Initial Review Date: 07/10/2019 Generated: 07/10/19 5:28 pm Comments DCP- Discharge Planning Updated by [email or web address]: Oumar Morales on 07/10/19 1:[address] Patient Name: WILLIAN CASTELLANOS Encounter No: [id number] : 1930 [facility] Anticipated DC Date: Planned Disposition: Nursing Facility [facility] Cert External Planned Provider: [place], LONG TERM CARE MEDICAID BED DCP follow-up note: CM RECEIVED CALL FROM JEANETTE CASTELLANOS, SON, WHO INFORMED CM THAT HE HAS TALKED TO DR. BETANCOURT AND MARINO MACDONALD. JEANETTE WOULD LIKE REFERRAL FOR HOSPICE FAXED TO [facility] BUT HAS NOT MADE A DEFINITE HOSPICE DECISION YET. JEANETTE WOULD LIKE TO DISCUSS HOSPICE CARE AND OPTIONS WITH [facility] BEFORE MAKING FURHTER DECISIONS. CHOICE COMPLETED FOR [facility]. CM CALLED [facility], ,. SPOKE TO MARGE AND PROVIDED REFERRAL FOR HOSPICE CONSULT. CM FAXED REFERRAL TO [facility] AT [phone]. CM WAITING ON HOSPICE CONSULT AND FOR PT'S SON'S DECISION REGARDING HOSPICE CARE. PT'S SON REPORTS THAT IF PT IS NOT APPROPRIATE FOR INPATIENT HOSPICE OR IF HE DECIDES AGAINST HOSPICE, HE PLANS TO RETURN PT TO FOOD AND BEVERAGE ORDER CLERK CARE AT [facility]. CM TO CONTINUE TO FOLLOW AND ASSIST NEEDED. Oumar Morales CASE MANAGEMENT DCP- Discharge Planning Updated by [id number]: Oumar Morales on 07/09/19 2:[address] Patient Name: WILLIAN CASTELLANOS Admission Status: ER Accout number: [id number] Admission Date: 07-04-2019 : 1930 Admission Diagnosis: Attending: CHRISTIANO STARK Current LOS: 5 Anticipated DC Date: Planned Disposition: Nursing Facility [facility] Primary Insurance: [facility] PLANNED EXTERNAL PROVIDER: [place], LONG TERM CARE MEDICAID BED Discharge Planning Comments: CM RECEIVED HOSPICE CONSULT ORDER. CM ATTEMPTED TO MEET WITH PT IN ROOM, PT CONFUSED, SUCKING ON FINGER. CM CALLED LISTED EMERGENCY CONTACT, JEANETTE CASTELLANOS, . JEANETTE INFORMED CM THAT PT IS PLACED AT [facility]. CM DISCUSSED HOSPICE ORDER AND DISCHARGE PLANNING PROCESS. CM PROVIDED NAMES OF HOSPICE PROVIDERS, DISCUSSED LOCATIONS HOSPICE CAN BE PROVIDED AND HOSPICE SERVICES. JEANETTE REPORTS HE HAS TALKED TO HE BEDSIDE NURSE REGARDING CHEST XRAYS AND HE IS PERSONAL FRIENDS WITH DR. STARK AND DR. SWAIN. JEANETTE WOULD LIKE TO SPEAK TO DR. BETANCOURT REGARDING PNEUMONIA DIAGNOSIS PRIOR TO MAKING FURTHER DECISIONS REGARDING HOSPICE. CM PROVIDED CM CONTACT INFORMATION AND PHONE NUMBER TO QUALITY IMPROVEMENT OFFICE FOR MEDICARE, DISCUSSED IMPORTANT MESSAGE FROM MEDICARE. CM COMPLETED CHOICE LIST FOR [facility] AND MAILED COPY OF IMPORTANT MESSAGE FROM MEDICARE TO JEANETTE CASTELLANOS AT [address] [place] [phone]. CM CALLED MARINO MACDONALD, LEFT MESSAGE ASKING FOR HIM TO CALL PT'S SON TO DISCUSS CARE AND TREATMENT TO ASSIST IN FAMILY MAKING HOSPICE DECISION. CM CALLED DR. BETANCOURT, ASKED THAT HE CALL PT'S SON REGARDING PNEUMONIA DIAGNOSIS, CARE AND TREATMENT TO ASSIST IN FAMILY MAKING HOSPICE DECISION. CM WAITING FOR MARINO RAVI AND DR. BETANCOURT TO SPEAK TO PT'S SON, JEANETTE CASTELLANOS AT [phone]. JEANETTE WILL MAKE FURTHER CARE DECISIONS AFTER SPEAKING TO THE DOCTORS. Door Liner Helper: Oumar Morales DCPIA - Discharge Planning Initial Assessment Updated by [email or web address]: Oumar Morales on 07/09/19 2:50 pm * Is the patient Alert and Oriented? No * How many steps to enter\exit or inside your home? NONE * PCP DR. STARK * Pharmacy [facility] [place] * Preadmission Environment [employer] Consultant Assisted * Facility Name [facility] [place] [facility] * ADLs Total Dependent * Equipment Other * Other Equipment ALL MEDICAL EQUIPMENT PROVIDED BY FACILITY * List name and contact numbers for known caregivers / representatives who currently or will assist patient after discharge: MICH MONTGOMERY, * Verbal permission to speak to the caregivers and representatives has been obtained from the patient. N/A * Community resources currently utilized None * Please name any agencies selected above. NONE * Additional services required to return to the preadmission environment? Yes * Can the patient safely return to the preadmission environment? Yes * Has this patient been hospitalized within the prior 30 days at any hospital? No Coverage Notice Reviewer: AUBREE Morales Notice Issued Date-Time: 07/09/2019 14:10 Notice Type: IM Discharge Notice Notice Delivered To: Family Member Relationship to Patient: Son Track Surfacing Machine Operator Name: JEANETTE CASTELLANOS Delivery Method: CERT - Certified Mail Patience Days: Prior Verbal Notification: Recipient Understood Notice: Yes Recipient Signature: Med Rec Note Co-signed by Attending: Coverage Notice Comment: DISCUSSED VIA PHONE Reviewer: AUBREE Morales Notice Issued Date-Time: 07/09/2019 14:10 Notice Type: Patient Choice Letter Notice Delivered To: Family Member Relationship to Patient: Son Track Surfacing Machine Operator Name: JEANETTE CASTELLANOS Delivery Method: HAND - Hand Delivered Patience Days: Prior Verbal Notification: Recipient Understood Notice: Yes Recipient Signature: Yes Med Rec Note Co-signed by Attending: Coverage Notice Comment: JOHN SIMMS Reviewer: [id number] Morales Notice Issued Date-Time: 07/10/2019 11:45 Notice Type: Patient Choice Letter Notice Delivered To: Family Member Relationship to Patient: Son Track Surfacing Machine Operator Name: JEANETTE CASTELLANOS Delivery Method: HAND - Hand Delivered Patience Days: Prior Verbal Notification: Recipient Understood Notice: Yes Recipient Signature: Yes Med Rec Note Co-signed by Attending: Coverage Notice Comment: [facility] Last DP export: 07/10/19 1:34 Patient Name: WILLIAN CASTELLANOS Page 11676 at 1629 All edits/amendments must be made on the electronic document DICTATION DATE: 07/10/191627 TOY STUFFER: ANGI 07/10/191627 RPT#: [id number] DC DATE: STATUS: ADM IN [facility] [address] [place] [address] END OF REPORT
--- NOTE | 2019-07-10 16:35 | NUR ---
HOSPICE EVAL DONE WITH SON. HAS ACCEPTED AND BLU NOTIFIED. WILL DC IN AM TO HOSPICE. SHALLOW AND RAPID BREATHING NOTED AND REPORTED.
--- NOTE | 2019-07-10 16:41 | MORECARE ---
CASE MANAGEMENT DISCHARGE SUMMARY PATIENT: WILLIAN CASTELLANOS UNIT: [id number] ADM DATE: 07/04/19 AGE: 88 : [birth year] SEX: F ROOM/BED: D.0296 AUTHOR: TRIST[employer]OC PHYSICIAN: REFERRING PHYSICIAN: CHRISTIANO STARK MD DATE OF SERVICE: 07/10/19 Discharge Plan Patient Name: WILLIAN CASTELLANOS Facility: [facility]:[place] : 1930 Planned Disposition: Hospice Medical Facility Anticipated Discharge Date: 07/10/19 Discharge Date: Expected LOS: 6 Initial Reviewer: [id number] Initial Review Date: 07/10/2019 Generated: 07/10/19 5:40 pm Comments DCP- Discharge Planning Updated by [id number]: Oumar Morales on 07/10/19 3:[address] Patient Name: WILLIAN CASTELLANOS Encounter No: [id number] : 1930 Primary Insurance: [employer] Anticipated DC Date: 07-10-2019 Planned Disposition: Hospice Medical Facility External Planned Provider: [facility], [place]PATIENT [place] DCP follow-up note: CM SPOKE TO [facility] WHO INFORMED CM THAT PT HAS BEEN ACCEPTED FOR INPATIENT HOSPICE TODAY BY DR. CAMPOS OF [facility]. CM NOTIFIED PT'S SON, JEANETTE CASTELLANOS, WHO IS IN AGREEMENT WITH HOSPICE AND WOULD LIKE PT TRANSFERRED TODAY. CM NOTIFIED DRUM WORKER TORRES WHO INFORMED CM THAT HE IS NOT IN LOCATION WITH ABILITY TO ENTER DISCHARGE AND WILL DISCHARGE PT IN THE MORNING. CM NOTIFIED PT'S SON WHO IS IN AGREEMENT WITH PLAN. CM RECEIVED CALL FROM [facility] WHO INFORMED CM THAT PT IS HAVING AGONAL BREATHING AND FEELS PT NEEDS TRANSFERRED TONIGHT TO HOSPICE. DAVID SPOKE TO BEDSIDE NURSE AND ASKED HER TO ALL DRUM WORKER. BEDSIDE NURSE INFORMED CM THAT DRUM WORKER WILL DISCHARGE TOMORROW TO [facility]. DAVID NOTIFIED RUIDOSO DOWNS WITH [facility]. FOR DISCHARGE TO [facility], FAX DISCHARGE INFORMATION TO [facility] AT [phone]. NURSE REPORT TO BE CALLED TO [facility] AT [phone]. PT TO TRANSPORT VIA AMBULANCE. Oumar Morales CASE MANAGEMENT DCP- Discharge Planning Updated by [id number]: Oumar Morales on 07/10/19 1:[address] Patient Name: WILLIAN CASTELLANOS Encounter No: [id number] : 1930 Primary Insurance: [facility] Anticipated DC Date: Planned Disposition: Nursing Facility [facility] Cert External Planned Provider: [place], LONG TERM CARE MEDICAID BED DCP follow-up note: CM RECEIVED CALL FROM JEANETTE CASTELLANOS, SON, WHO INFORMED CM THAT HE HAS TALKED TO DR. BETANCOURT AND MARINO MACDONALD. JEANETTE WOULD LIKE REFERRAL FOR HOSPICE FAXED TO [facility] BUT HAS NOT MADE A DEFINITE HOSPICE DECISION YET. JEANETTE WOULD LIKE TO DISCUSS HOSPICE CARE AND OPTIONS WITH [facility] BEFORE MAKING FURHTER DECISIONS. CHOICE COMPLETED FOR [facility]. CM CALLED [facility], ,. SPOKE TO MARGE AND PROVIDED REFERRAL FOR HOSPICE CONSULT. CM FAXED REFERRAL TO [facility] AT [phone]. CM WAITING ON HOSPICE CONSULT AND FOR PT'S SON'S DECISION REGARDING HOSPICE CARE. PT'S SON REPORTS THAT IF PT IS NOT APPROPRIATE FOR INPATIENT HOSPICE OR IF HE DECIDES AGAINST HOSPICE, HE PLANS TO RETURN PT TO ALF CARE AT [facility]. CM TO CONTINUE TO FOLLOW AND ASSIST NEEDED. Oumar Morales CASE MANAGEMENT DCP- Discharge Planning Updated by [id number]: Oumar Morales on 07/09/19 2:[address] Patient Name: WILLIAN CASTELLANOS Admission Status: ER Accout number: [id number] Admission Date: 07-04-2019 : 1930 Admission Diagnosis: Attending: CHRISTIANO STARK Current LOS: 5 Anticipated DC Date: Planned Disposition: Nursing Facility [facility] Cert Primary Insurance: [facility] PLANNED EXTERNAL PROVIDER: [place], LONG TERM CARE MEDICAID BED Discharge Planning Comments: CM RECEIVED HOSPICE CONSULT ORDER. CM ATTEMPTED TO MEET WITH PT IN ROOM, PT CONFUSED, SUCKING ON FINGER. CM CALLED LISTED EMERGENCY CONTACT, JEANETTEVik CASTELLANOS, . JEANETTE INFORMED CM THAT PT IS PLACED AT [facility]. CM DISCUSSED HOSPICE ORDER AND DISCHARGE PLANNING PROCESS. CM PROVIDED NAMES OF HOSPICE PROVIDERS, DISCUSSED LOCATIONS HOSPICE CAN BE PROVIDED AND HOSPICE SERVICES. JEANETTE REPORTS HE HAS TALKED TO HE BEDSIDE NURSE REGARDING CHEST XRAYS AND HE IS PERSONAL FRIENDS WITH DR. STARK AND DR. SWAIN. JEANETTE WOULD LIKE TO SPEAK TO DR. BETANCOURT REGARDING PNEUMONIA DIAGNOSIS PRIOR TO MAKING FURTHER DECISIONS REGARDING HOSPICE. CM PROVIDED CM CONTACT INFORMATION AND PHONE NUMBER TO QUALITY IMPROVEMENT OFFICE FOR MEDICARE, DISCUSSED IMPORTANT MESSAGE FROM MEDICARE. CM COMPLETED CHOICE LIST FOR [facility] AND MAILED COPY OF IMPORTANT MESSAGE FROM MEDICARE TO JEANETTE CASTELLANOS AT [address] [place] [address], [place]. [address]. CM CALLED MARINO MACDONALD, LEFT MESSAGE ASKING FOR HIM TO CALL PT'S SON TO DISCUSS CARE AND TREATMENT TO ASSIST IN FAMILY MAKING HOSPICE DECISION. CM CALLED DR. BETANCOURT, ASKED THAT HE CALL PT'S SON REGARDING PNEUMONIA DIAGNOSIS, CARE AND TREATMENT TO ASSIST IN FAMILY MAKING HOSPICE DECISION. CM WAITING FOR MARINO RAVI AND DR. BETANCOURT TO SPEAK TO PT'S SON, JEANETTE CASTELLANOS AT [phone]. JEANETTE WILL MAKE FURTHER CARE DECISIONS AFTER SPEAKING TO THE DOCTORS. Finance Professional: Oumar Morales DCPIA - Discharge Planning Initial Assessment Updated by [email or web address]: Oumar Morales on 07/09/19 2:50 pm * Is the patient Alert and Oriented? No * How many steps to enter\exit or inside your home? NONE * PCP DR. STARK * Pharmacy [facility] [place] * Preadmission Environment Dry Transfer Worker Custodial * Facility Name [facility] * ADLs Total Dependent * Equipment Other * Other Equipment ALL MEDICAL EQUIPMENT PROVIDED BY FACILITY * List name and contact numbers for known caregivers / representatives who currently or will assist patient after discharge: JEANETTE CASTELLANOS, SON, * Verbal permission to speak to the caregivers and representatives has been obtained from the patient. N/A * Community resources currently utilized None * Please name any agencies selected above. NONE * Additional services required to return to the preadmission environment? Yes * Can the patient safely return to the preadmission environment? Yes * Has this patient been hospitalized within the prior 30 days at any hospital? No Coverage Notice Reviewer: [id number] - Oumar Morales Notice Issued Date-Time: 07/09/2019 14:10 Notice Type: IM Discharge Notice Notice Delivered To: Family Member Relationship to Patient: Son Medical Superintendent Name: JEANETTE CASTELLANOS Delivery Method: [facility] - Certified Mail Patience Days: Prior Verbal Notification: Recipient Understood Notice: Yes Recipient Signature: Med Rec Note Co-signed by Attending: Coverage Notice Comment: DISCUSSED VIA PHONE Reviewer: [id number] Morales Notice Issued Date-Time: 07/09/2019 14:10 Notice Type: Patient Choice Letter Notice Delivered To: Family Member Relationship to Patient: Son Medical Superintendent Name: JEANETTE CASTELLANOS Delivery Method: HAND - Hand Delivered Patience Days: Prior Verbal Notification: Recipient Understood Notice: Yes Recipient Signature: Yes Med Rec Note Co-signed by Attending: Coverage Notice Comment: JOHN SIMMS Reviewer: [id number] Justina Morales Notice Issued Date-Time: 07/10/2019 11:45 Notice Type: Patient Choice Letter Notice Delivered To: Family Member Relationship to Patient: Son Medical Superintendent Name: JEANETTE CASTELLANOS Delivery Method: HAND - Hand Delivered Patience Days: Prior Verbal Notification: Recipient Understood Notice: Yes Recipient Signature: Yes Med Rec Note Co-signed by Attending: Coverage Notice Comment: [facility] Last DP export: 07/10/19 3:29 Patient Name: WILLIAN CASTELLANOS Page [phone] at 1641 All edits/amendments must be made on the electronic document DICTATION DATE: 07/10/19 1640 SPORTS ACTIVITIES FOUL JUDGE: ANGI 07/10/19 1640 RPT#: [id number] [place] DATE: STATUS: ADM IN [facility] [address] [place] [address] END OF REPORT
[2019-07-10 17:08] LABS: AEROBE ID Final report (()); RESULT 1 Escherichia coli (())
--- NOTE | 2019-07-10 19:12 | NUR ---
RECEIVED BEDSIDE REPORT. PATIENT RESTING COMFORTABLY IN BED. RESPIRATIONS EVEN PATIENT USING ACCESSORY MUSCLE. CALL LIGHT WITHIN REACH. WILL CPOC.
[2019-07-10 20:00] VITALS: BP 126/63
[2019-07-10 23:00] VITALS: BP 129/57
--- NOTE | 2019-07-11 02:27 | NUR ---
PATIENT RESTING COMFORTABLY IN BED. PATIENT HAVING AGONAL BREATHING. CALL LIGHT WITHIN REACH. WILL CPOC.
[2019-07-11 04:00] VITALS: BP 126/50
[2019-07-11 09:39] VITALS: BP 117/67
--- NOTE | 2019-07-11 09:49 | NUR ---
TELEMETRY DCD. REPORT CALLED TO HOSPICE NURSE. LEAVING BY EMS.
[2019-07-11 19:08] LABS: AEROBE ID Final report (()); AEROBE ID Preliminary report (()); RESULT 1 Aerococcus viridans (())
== END 2019-07-11 09:50 | disposition hospice, home (50) | DRG 177 ==
LOC: D.ER 23:43 → D.M2 07-04 00:24
PROVIDERS: Emergency Medicine; Family Medicine; Internal Medicine Pulmonary Disease; ADMIT Family Medicine; ATTEND Family Medicine
DX: J69.0 Pneumonitis due to inhalation of food and vomit (principal); L89.154 Pressure ulcer of sacral region, stage 4; J96.21 Acute and chronic respiratory failure with hypoxia; R40.2214 Coma scale, best verbal response, none, 24 hours or more after hospital admission; R40.2124 Coma scale, eyes open, to pain, 24 hours or more after hospital admission; I24.8 Other forms of acute ischemic heart disease; N39.0 Urinary tract infection, site not specified; I48.91 Unspecified atrial fibrillation; I69.319 Unspecified symptoms and signs involving cognitive functions following cerebral infarction; F34.1 Dysthymic disorder; E78.5 Hyperlipidemia, unspecified; M15.0 Primary generalized (osteo)arthritis; F01.50 Vascular dementia, unspecified severity, without behavioral disturbance, psychotic disturbance, mood disturbance, and anxiety; K43.9 Ventral hernia without obstruction or gangrene; H90.6 Mixed conductive and sensorineural hearing loss, bilateral; I69.391 Dysphagia following cerebral infarction; I35.0 Nonrheumatic aortic (valve) stenosis; Z66 Do not resuscitate; B96.89 Other specified bacterial agents as the cause of diseases classified elsewhere; D64.9 Anemia, unspecified; R40.2354 Coma scale, best motor response, localizes pain, 24 hours or more after hospital admission